=== PATIENT | male | born 1945 | race Caucasian/White ===

== ENCOUNTER 2022-08-25 10:23 | Outpatient (CLI) | payer MEDICARE, BC, SELFPAY ==
[2022-08-25 11:22] LABS: Creatinine* 0.7 mg/dL (0.5-1.5); Estimated Glomerular Filt Rate 95 ml/min
--- NOTE | 2022-08-25 12:00 | CRLHL7_ITS ---
For Patients: As a result of the Century Cures Act, medical imaging exams and procedure reports are released immediately into your electronic medical record. You may view this report before your referring provider. If you have questions, please contact your health care provider. HISTORY: 77-year-old male. Prostate cancer. Initial staging. TECHNIQUE: 27.3 millicuries of [id number] was injected intravenously. Delayed images of the skeleton were obtained in the anterior and posterior projections. Additional lateral views of the pelvis were also obtained. FINDINGS: There is good uptake of activity by the skeleton. Mild uptake in the cervical, thoracic and lumbar spine, shoulders, sternoclavicular joints, hands and wrists, knees, ankles and feet has a pattern and appearance most characteristic of benign arthritic changes. No other significant bony abnormalities are identified. IMPRESSION: 1. There is no convincing evidence of skeletal metastases. 2. There are benign-appearing arthritic changes in multiple locations. Dictated by José Luis Elizalde MD @ 08/25/2022 3:41:54 PM (Electronically Signed)
--- NOTE | 2022-08-25 13:00 | CRLHL7_ITS ---
For Patients: As a result of the Century Cures Act, medical imaging exams and procedure reports are released immediately into your electronic medical record. You may view this report before your referring provider. If you have questions, please contact your health care provider. Indication: PRIMARY MALIGNANT NEOPLASM OF PROSTATE Technique: Postcontrast CT abdomen only per referring provider. 150 cc Isovue 370 intravenous contrast. Please note that all CT scans at this facility use dose modulation, iterative reconstruction, and/or weight-based dosing when appropriate to reduce radiation dose to as low as reasonably achievable. Comparison: None Findings: Calcified granuloma is present within the right lower lobe. Calcified right hilar lymph node also noted. No pleural effusion. Calcified granulomas in the spleen. Punctate calcified granulomas in the liver. No intrahepatic mass. 7 millimeter stone in the gallbladder lumen. Adrenal glands normal. No hiatal hernia. Stomach appears normal. Normal visualized small bowel loops. Large bowel loops also unremarkable. Atherosclerotic disease. No aneurysm. No enlarged retroperitoneal or mesenteric lymph nodes. No solid renal mass or stone. Small parapelvic cysts are present bilaterally. No intrinsic osseous lesion or fracture. Impression: Old granulomatous disease. No abdominal adenopathy. Cholelithiasis. Please note that all CT scans at this facility use dose modulation, iterative reconstruction, and/or weight-based dosing when appropriate to reduce radiation dose to as low as reasonably achievable. Dictated by Elfego Warren MD @ 08/27/2022 3:24:28 PM (Electronically Signed)
--- NOTE | 2022-08-25 13:00 | CRLHL7_ITS ---
For Patients: As a result of the Century Cures Act, medical imaging exams and procedure reports are released immediately into your electronic medical record. You may view this report before your referring provider. If you have questions, please contact your health care provider. Indication: PRIMARY MALIGNANT NEOPLASM OF PROSTATE Technique: Post contrast CT chest. 150 cc Isovue 370 intravenous contrast. Please note that all CT scans at this facility use dose modulation, iterative reconstruction, and/or weight-based dosing when appropriate to reduce radiation dose to as low as reasonably achievable. Comparison: None Findings: 15 millimeter ovoid structure adjacent to the right posterolateral aspect of the trachea, series 2, image 14. No hilar or axillary adenopathy. No destructive osseous lesion or fracture. Degenerative changes. Sequela of granulomatous disease with calcified splenic and hepatic granulomas. Calcified right posterior hilar lymph node and cluster of calcified granulomas within the right lower lobe measuring in total 14 millimeters. No infiltrate or edema. No effusion or pneumothorax. Scarring is present within the right upper lobe medially. Similar scarring at the right lower lobe medially. Impression: Sequela of granulomatous disease. Mildly prominent ovoid solid nodule adjacent to the right posterolateral trachea in the right posterior superior mediastinum. This may represent a mildly prominent lymph node. Attention on follow-up suggested. Please note that all CT scans at this facility use dose modulation, iterative reconstruction, and/or weight-based dosing when appropriate to reduce radiation dose to as low as reasonably achievable. Dictated by Elfego Warren MD @ 08/27/2022 3:20:54 PM (Electronically Signed)
== END 2022-08-25 10:24 | disposition home or self-care (01) ==
PROVIDERS: PCP Family Medicine; Visit Provider Physician Assistant
DX: C61 Malignant neoplasm of prostate (principal)
CPT/HCPCS: 36415; 71260; 74160; 78306; 82565; A9503; Q9967

== ENCOUNTER 2022-10-09 12:40 | Outpatient (CLI) | payer MEDICARE, BC, SELFPAY | END 2022-10-09 12:41 | disposition home or self-care (01) | PROVIDERS: PCP Family Medicine; Referring Provider Family Medicine; Visit Provider Physician Assistant | DX: C61 Malignant neoplasm of prostate (principal) | CPT/HCPCS: 72195 ==

== ENCOUNTER 2022-10-15 14:53 | Outpatient (CLI) | payer MEDICARE, BC, SELFPAY ==
--- NOTE | 2022-10-15 15:30 | CRLHL7_ITS ---
For Patients: As a result of the Cures Act, medical imaging exams and procedure reports are released immediately into your electronic medical record. You may view this report before your referring provider. If you have questions, please contact your health care provider. DXA BONE MINERAL DENSITY STUDY, 10/15/2022 Current height (in): 70.0. Weight (lb): 320.0. Ethnicity: White. 1. Have you had a previous hip or vertebral fracture? No. 2. Have you had any fractures during your adult life which did not result from significant trauma (e.g., auto accident)? No. 3. Did either of your parents have a hip fracture? No. 4. Do you smoke? No. 5. Have you ever taken Glucocorticoids? No. 6. Do you have rheumatoid arthritis? No. 7. Do you have secondary osteoporosis? No. 8. Do you drink 3 or more alcoholic drinks per day? No. 9. Are you being treated for osteoporosis? No. 10. Have you ever taken any of the following medications: Actonel, Evista, Fosamax, Miacalcin, Reclast, Boniva, Forteo, HRT (i.e. estrogen/hormone therapy), Protelos, Prolia, Vitamin D, Calcium, other ??? please specify. ANSWER: Yes, Vitamin D and calcium. 11. Do you have any of the following medical conditions: Anorexia or bulimia, asthma or emphysema, end stage renal disease, hyperparathyroidism, any seizure disorders, cancer, inflammatory bowel diseases, hysterectomy, other ??? please specify. ANSWER: Yes, Cancer. 12. What was your maximum height (inches)? 70. 13. Do you perform weight bearing exercise regularly? No. 14. Do you regularly consume dairy products? No. 15. Do you drink caffeinated beverages? Yes. TECHNIQUE: Bone mineral density study was performed using the [employer]. FINDINGS: The results of the study expressed as bone mineral density (BMD) are as follows: Lumbar spine L1 to L3: BMD: 1.203 g/cm2. T-score: 1.2. Z-score: 2.3. Neck Left: BMD: 0.811 g/cm2. T-score: -0.9 . Z-score: 0.5. Right: BMD: 0.814 g/cm2. T-score: -0.9 . Z-score: 0.5. Total Left: BMD: 0.943 g/cm2. T-score: -0.6 . Z-score: 0.3. Right: BMD: 0.968 g/cm2. T-score: -0.4 . Z-score: 0.5. IMPRESSION: Normal bone density. *Comparison exams done prior to 12/2019 were performed on different unit, [employer]. Elfego Warren M.D. Diagnostic Radiologist [email or web address] DSM/dayan JR/Dictated by: Elfego Warren MD @ 10/16/2022 8:04:00 AM (Electronically Signed)
== END 2022-10-15 14:54 | disposition home or self-care (01) ==
LOC: RAD 14:54
PROVIDERS: PCP Family Medicine; Visit Provider Nurse Practitioner
DX: C61 Malignant neoplasm of prostate (principal)
CPT/HCPCS: 77080

== ENCOUNTER 2023-02-04 09:45 | Outpatient (CLI) | payer MEDICARE, BC, SELFPAY ==
--- NOTE | 2023-02-04 10:00 | CRLHL7_ITS ---
For Patients: As a result of the Century Cures Act, medical imaging exams and procedure reports are released immediately into your electronic medical record. You may view this report before your referring provider. If you have questions, please contact your health care provider. Indication: Follow up nodule Technique: Noncontrast CT chest Please note that all CT scans at this facility use dose modulation, iterative reconstruction, and/or weight-based dosing when appropriate to reduce radiation dose to as low as reasonably achievable. Comparison: 08/25/2022 Findings: The visualized thyroid is within normal limits. Calcified right hilar lymph node noted. Small calcified stone within the gallbladder lumen. Adrenal glands are normal. Calcified splenic granulomas are present. Mild calcifications in the coronary arteries are suspected. Stable nodular density adjacent to the upper trachea on the right. No suspicious osseous lesion. No fracture. Discogenic spurring lower thoracic spine. Clustered partially calcified nodule in the right lower lobe is similar. No additional nodules. No infiltrate or edema. No effusion or pneumothorax. Impression: Stable exam. Chronic granulomatous changes. Unchanged lymph node adjacent to the right side of the trachea considered of doubtful significance. Please note that all CT scans at this facility use dose modulation, iterative reconstruction, and/or weight-based dosing when appropriate to reduce radiation dose to as low as reasonably achievable. Dictated by Elfego Warren MD @ 02/04/2023 12:58:32 PM (Electronically Signed)
== END 2023-02-04 09:46 | disposition home or self-care (01) ==
PROVIDERS: PCP Family Medicine; Visit Provider Physician Assistant
DX: R91.1 Solitary pulmonary nodule (principal)
CPT/HCPCS: 71250

== ENCOUNTER 2023-04-05 13:20 | Outpatient (CLI) | payer MEDICARE, BC, SELFPAY ==
--- NOTE | 2023-04-05 14:00 | CRLHL7_ITS ---
For Patients: As a result of the Century Cures Act, medical imaging exams and procedure reports are released immediately into your electronic medical record. You may view this report before your referring provider. If you have questions, please contact your health care provider. Indication: SOLITARY PULMONARY NODULE Technique: Noncontrast CT chest Please note that all CT scans at this facility use dose modulation, iterative reconstruction, and/or weight-based dosing when appropriate to reduce radiation dose to as low as reasonably achievable. Comparison: 02/04/2023 Findings: 8 millimeter calcified gallstone in the gallbladder lumen again noted. Calcified splenic granulomas. No splenomegaly. Adrenal glands normal. No hiatal hernia. Visualized thyroid normal. Mild calcifications of the coronary arteries. Coarsely calcified nodule within the right lower lobe is similar measuring 1.4 cm stable calcified right posterior hilar lymph node. No enlarged mediastinal, hilar or axillary lymph nodes. Mild linear scarring within the posterior lateral left lower lobe at the inferior aspect. Mild scarring within the medial aspect of the right lower lobe. No pleural effusion or infiltrate. No edema or pneumothorax. No fracture. Discogenic spurring throughout the thoracic spine. Mild emphysematous changes. Impression: Stable benign hamartoma within the right lower lobe. No suspicious pulmonary nodule. No adenopathy. Chronic cholelithiasis. Please note that all CT scans at this facility use dose modulation, iterative reconstruction, and/or weight-based dosing when appropriate to reduce radiation dose to as low as reasonably achievable. Dictated by Elfego Warren MD @ 04/06/2023 9:05:30 AM (Electronically Signed)
== END 2023-04-05 13:21 | disposition home or self-care (01) ==
LOC: CT 13:22
PROVIDERS: PCP Family Medicine; Visit Provider Physician Assistant
DX: R91.1 Solitary pulmonary nodule (principal); K80.20 Calculus of gallbladder without cholecystitis without obstruction
CPT/HCPCS: 71250

== ENCOUNTER 2023-04-19 14:00 | Outpatient (RCR) | payer MEDICARE, BC, SELFPAY ==
--- NOTE | 2022-10-14 10:31 | URNOTE ---
Received request for prior auth for Loni ([id number]) Prior authorization is not required as services are based on medical necessity and follow medicare guidelines.
--- NOTE | 2022-10-14 17:17 | A.ONCPRONO_ITS ---
[facility] Provider Note Clinic Note Narrative: Treatment plan: Eligard 22.5mg SubQ q 3 months Mr. Gus Santos follows at [facility] with Dr. Marco Munson and Alicia Berg APRN, CNP for medical management of Stage ANGEL adenocarcinoma of the prostate. Our clinic received paper orders for first injection of eligard for Mr Santos to be given on 10/19/22. I have entered a treatment plan order on behalf of Alicia Berg APRN, CNP for Mr. Santos.
[2022-10-21 14:32] VITALS: BP 178/81; PULSE 81; RESP 16; TEMP 36; O2SAT 99
[2022-10-21] MEDS: LEUPROLIDE ACETATE 22.5 MG (SQ) SYRINGE SUBCUT (14:58)
--- NOTE | 2022-11-09 14:31 | ONC.NURNOTE ---
New RX Abiraterone faxed to [facility] at [facility] P [phone] P [phone] F [phone] 1000 daily on an empty stomach disp #120 no refills
--- NOTE | 2022-11-09 16:41 | ONC.NURNOTE ---
Addendum entered by Mahogany Alas RN 11/12/22 13:40: abiraterone ready to be ordered through [facility]- patient informed appt reviewed and plan for new drug instruction next week 11/[address] Lowe in follow up Addendum entered by Mahogany Alas RN 11/11/22 12:58: [facility] cost for Zytiga is $833/month RX canceled at and will be faxed to [facility] Instructions given over the phone and emailed to Derrell to register with [facility] at [email or web address] Original Note: Patient updated about abiraterone RX and [facility] he has started his BID prednisone yesterday and was instructed to stop- this will start when starts abiraterone reviewed possible monthly cost of abiraterone around $160 Derrell has appt on 11/17/22 plan to do baseline lab that day and abiraterone teaching after he sees Dr Lowe
[2022-11-17 09:55] LABS: Basophils Absolute Auto 0.02 K/uL (0.00-0.30); Basophils Percent Auto 0.4 % (0.0-3.0); Eosinophils Absolute Auto 0.28 K/uL (0.00-0.50); Eosinophils Percent Auto 5.7 % (0.0-7.0); Hemoglobin* 13.8 gm/dL (13.5-17.5); Immature Granulocytes Abs Auto 0.04 K/uL (0.00-0.30); Immature Granulocytes Pct Auto 0.8 %; Lymphocytes Percent Auto 7.5 % (20-44); Mean Corpuscular HGB Conc 35 gm/dL (32-36); Mean Corpuscular Hemoglobin 29 pg (26-34); Mean Corpuscular Volume 85 fL (80-100); Monocytes Percent Auto 11.2 % (0.0-11.0); Neutrophils Percent Auto 74.4 % (42.0-72.0); Platelet Count* 138 K/uL (140-440); Red Blood Count 4.72 m/uL (4.30-5.90); White Blood Count* 4.92 K/uL (4.50-11.00)
[2022-11-17 09:58] LABS: Slide Review Reflex No
[2022-11-17 10:16] LABS: Chloride* 105 mmol/L (96-114); Sodium* 138 mmol/L (135-149)
[2022-11-17 10:17] LABS: Potassium* 4.4 mmol/L (3.6-5.1)
[2022-11-17 10:19] LABS: Alkaline Phosphatase* 57 U/L (40-150); Aspartate Amino Transferase* 23 U/L (12-35); Bilirubin Total* 0.6 mg/dL (0.1-1.5); Blood Urea Nitrogen* 11 mg/dL (7-30); Carbon Dioxide* 27 mmol/L (20-32); Creatinine* 0.7 mg/dL (0.5-1.5); Est. Creatinine Clearance* 62.84; Estimated Glomerular Filt Rate 95 ml/min; Total Protein* 6.8 g/dL (6.0-8.3)
[2022-11-17 10:20] LABS: Alanine Aminotransferase* 25 U/L (4-50); Calcium* 8.8 mg/dL (8.4-10.6); Glucose* 153 mg/dL (60-115)
[2022-11-17 10:54] LABS: PSA Diagnostic* 0.29 ng/mL (0.10-4.00)
--- NOTE | 2022-11-20 10:26 | ONC.NURNOTE ---
monitoring blood sugar levels Coordination of care Dr Lowe's note sent to Dr Stanley- PCP informed of pending start of prednisone next week patient takes metformin and was instructed to check his blood sugar levels at home for the first few weeks after starting prednisone
--- NOTE | 2022-11-23 11:17 | ONC.NURNOTE ---
New start Abiraterone: started yesterday confirms dosage- 4 pills on an empty stomach prednisone with food reports no side effects or concerns taking abiraterone in am before breakfast
--- NOTE | 2022-12-03 15:21 | ONC.NURNOTE ---
New start abiraterone follow up reports taking once daily X 4 tabs 1 hr before breakfast with prednisone an hour later patient has not checked his blood sugar levels, states he hasnt needed to check glucose several years he thinks that Dr Stanley recently checked his glucose but patient unsure what the value was Gus was instructed to check his blood sugar at home, and he states he will try to do that
[2022-12-17 14:58] LABS: Basophils Absolute Auto 0.03 K/uL (0.00-0.30); Basophils Percent Auto 0.4 % (0.0-3.0); Eosinophils Absolute Auto 0.05 K/uL (0.00-0.50); Eosinophils Percent Auto 0.7 % (0.0-7.0); Hematocrit 39.2 % (37.0-53.0); Hemoglobin* 13.3 gm/dL (13.5-17.5); Immature Granulocytes Abs Auto 0.07 K/uL (0.00-0.30); Immature Granulocytes Pct Auto 0.9 %; Lymphocytes Percent Auto 17.3 % (20-44); Mean Corpuscular HGB Conc 34 gm/dL (32-36); Mean Corpuscular Hemoglobin 30 pg (26-34); Mean Corpuscular Volume 87 fL (80-100); Monocytes Percent Auto 8.2 % (0.0-11.0); Neutrophils Percent Auto 72.5 % (42.0-72.0); Platelet Count* 152 K/uL (140-440); RDW Coefficient of Variation % 13.9 % (11.5-15.5); Red Blood Count 4.51 m/uL (4.30-5.90); White Blood Count* 7.42 K/uL (4.50-11.00)
[2022-12-17 15:16] LABS: Slide Review Reflex No
[2022-12-17 15:21] LABS: Albumin* 4.2 g/dL (3.3-5.0); Chloride* 102 mmol/L (96-114)
[2022-12-17 15:22] LABS: Potassium* 4.1 mmol/L (3.6-5.1); Sodium* 136 mmol/L (135-149)
[2022-12-17 15:24] LABS: Alkaline Phosphatase* 64 U/L (40-150); Aspartate Amino Transferase* 19 U/L (12-35); Bilirubin Total* 0.4 mg/dL (0.1-1.5); Blood Urea Nitrogen* 23 mg/dL (7-30); Carbon Dioxide* 29 mmol/L (20-32); Creatinine* 0.9 mg/dL (0.5-1.5); Est. Creatinine Clearance* 62.84; Estimated Glomerular Filt Rate 89 ml/min
[2022-12-17 15:25] LABS: Alanine Aminotransferase* 23 U/L (4-50); Calcium* 9.1 mg/dL (8.4-10.6); Glucose* 181 mg/dL (60-115)
[2022-12-17 16:25] LABS: Cholesterol* 160 mg/dL (90-199); HDL Cholesterol* 52 mg/dL (>=40); LDL Cholesterol Calculated 74 mg/dL (<100); Triglycerides* 172 mg/dL (40-149)
[2022-12-19 12:47] LABS: Testosterone, Adult Male <3 ng/dL (300-720)
--- NOTE | 2022-12-22 12:41 | ONC.NURNOTE ---
Fruit Grading Supervisor called Derrell and informed him that the refills for abiraterone and prednisone have been submitted to his pharmacies Derrell expressed considerable frustration with the inconvenience of not having refills available when he went to reorder conventional underwriter explained that Jenna Kinsey did not sent a refill request to our office, in order to avoid another lapse in treatment, it would be most helpful if Derrell calls our office when he receives notification that there are not refills available Derrell has reduced the dose of abiraterone past 5 days from 4 tabs/day to 3 tabs/day in order to stretch out the RX while waiting for refills- he took his last dose this am his daughter will order the refills today
[2023-01-11 10:11] LABS: Basophils Absolute Auto 0.03 K/uL (0.00-0.30); Basophils Percent Auto 0.3 % (0.0-3.0); Eosinophils Absolute Auto 0.09 K/uL (0.00-0.50); Hematocrit 37.1 % (37.0-53.0); Hemoglobin* 12.5 gm/dL (13.5-17.5); Immature Granulocytes Abs Auto 0.31 K/uL (0.00-0.30); Immature Granulocytes Pct Auto 3.6 %; Lymphocytes Percent Auto 11.9 % (20-44); Mean Corpuscular HGB Conc 34 gm/dL (32-36); Mean Corpuscular Hemoglobin 29 pg (26-34); Mean Corpuscular Volume 87 fL (80-100); Monocytes Percent Auto 6.2 % (0.0-11.0); Platelet Count* 246 K/uL (140-440); RDW Coefficient of Variation % 13.3 % (11.5-15.5); Red Blood Count 4.29 m/uL (4.30-5.90); White Blood Count* 8.68 K/uL (4.50-11.00)
[2023-01-11 10:12] LABS: Slide Review Reflex No
[2023-01-11 10:31] LABS: Albumin* 3.9 g/dL (3.3-5.0); Chloride* 103 mmol/L (96-114); Potassium* 3.9 mmol/L (3.6-5.1); Sodium* 133 mmol/L (135-149)
[2023-01-11 10:34] LABS: Alanine Aminotransferase* 22 U/L (4-50); Alkaline Phosphatase* 59 U/L (40-150); Aspartate Amino Transferase* 23 U/L (12-35); Bilirubin Total* 0.3 mg/dL (0.1-1.5); Blood Urea Nitrogen* 18 mg/dL (7-30); Carbon Dioxide* 26 mmol/L (20-32); Creatinine* 0.7 mg/dL (0.5-1.5); Est. Creatinine Clearance* 62.84; Estimated Glomerular Filt Rate 95 ml/min; Glucose* 183 mg/dL (60-115)
[2023-01-11 10:35] LABS: Calcium* 8.9 mg/dL (8.4-10.6)
--- NOTE | 2023-01-11 11:55 | ONC.NURNOTE ---
Derrell was here for lab and abiraterone follow up Derrell has not ordered his next dose of abiraterone from the [facility] this technical writer and editor walked him through the process and refill was ordered to be delivered next week Labs reviewed- discussed Na and Glucose- Blood sugar is being monitored by Dr Stanley reviewed how is is taking the abiraterone at home and prednisone new appts made for follow in 4 weeks with labs Derrell has been off his abiraterone since end of November- multiple conversations with patient has occured since late november with instructions- that he will need to log in to [facility] to order his next RX initially kory in law set up the account and ordered the first month for patient Derrell has this writers contact, he can call and come in each month and technical writer and editor will assist in ordering the medication via the elizabet on his cell phone next follow up in 4 weeks and this office can help him order his abiraterone at that time reports no concerns with taking abiraterone, states he was tolerating well
[2023-01-19 14:12] VITALS: BP 133/82; PULSE 87; RESP 16; TEMP 36.3; O2SAT 96
[2023-01-19] MEDS: LEUPROLIDE ACETATE 22.5 MG (SQ) SYRINGE SUBCUT (14:21)
--- NOTE | 2023-01-20 14:26 | ONC.NURNOTE ---
Yesterday patient reported that he received his abiraterone and restarted after a 1 month break Derrell had needed assist of this office to order his refills
[2023-02-09 13:54] LABS: Basophils Absolute Auto 0.04 K/uL (0.00-0.30); Basophils Percent Auto 0.5 % (0.0-3.0); Eosinophils Absolute Auto 0.07 K/uL (0.00-0.50); Eosinophils Percent Auto 0.9 % (0.0-7.0); Hematocrit 37.1 % (37.0-53.0); Hemoglobin* 12.5 gm/dL (13.5-17.5); Immature Granulocytes Abs Auto 0.06 K/uL (0.00-0.30); Immature Granulocytes Pct Auto 0.8 %; Lymphocytes Percent Auto 10.6 % (20-44); Mean Corpuscular HGB Conc 34 gm/dL (32-36); Mean Corpuscular Hemoglobin 30 pg (26-34); Mean Corpuscular Volume 90 fL (80-100); Monocytes Percent Auto 7.7 % (0.0-11.0); Neutrophils Percent Auto 79.5 % (42.0-72.0); Platelet Count* 174 K/uL (140-440); RDW Coefficient of Variation % 13.5 % (11.5-15.5); Red Blood Count 4.12 m/uL (4.30-5.90); White Blood Count* 7.54 K/uL (4.50-11.00)
[2023-02-09 13:56] LABS: Slide Review Reflex No
[2023-02-09 14:09] LABS: Albumin* 3.9 g/dL (3.3-5.0)
[2023-02-09 14:10] LABS: Chloride* 102 mmol/L (96-114); Potassium* 3.8 mmol/L (3.6-5.1); Sodium* 135 mmol/L (135-149)
[2023-02-09 14:12] LABS: Bilirubin Total* 0.4 mg/dL (0.1-1.5); Carbon Dioxide* 27 mmol/L (20-32); Creatinine* 0.8 mg/dL (0.5-1.5); Est. Creatinine Clearance* 61.86; Estimated Glomerular Filt Rate 91 ml/min
[2023-02-09 14:13] LABS: Alanine Aminotransferase* 19 U/L (4-50); Alkaline Phosphatase* 66 U/L (40-150); Aspartate Amino Transferase* 18 U/L (12-35); Blood Urea Nitrogen* 22 mg/dL (7-30); Calcium* 8.6 mg/dL (8.4-10.6); Glucose* 220 mg/dL (60-115); Total Protein* 6.7 g/dL (6.0-8.3)
[2023-02-09 14:56] LABS: PSA Diagnostic* < 0.06 ng/mL (0.10-4.00)
--- NOTE | 2023-03-15 14:07 | ONC.NURNOTE ---
Addendum entered by Mahogany Alas RN 03/15/23 16:04: Lab results called to Derrell as stable Original Note: Derrell is here for monthly lab work, reports no concerns with his abiraterone dose confirmed expert medical writer assisted Derrell in ordering his next dose from [facility]
[2023-03-15 14:18] LABS: Basophils Absolute Auto 0.04 K/uL (0.00-0.30); Basophils Percent Auto 0.6 % (0.0-3.0); Eosinophils Percent Auto 1.4 % (0.0-7.0); Hematocrit 37.3 % (37.0-53.0); Hemoglobin* 12.6 gm/dL (13.5-17.5); Immature Granulocytes Abs Auto 0.06 K/uL (0.00-0.30); Immature Granulocytes Pct Auto 0.8 %; Lymphocytes Percent Auto 9.6 % (20-44); Mean Corpuscular HGB Conc 34 gm/dL (32-36); Mean Corpuscular Hemoglobin 30 pg (26-34); Mean Corpuscular Volume 89 fL (80-100); Monocytes Percent Auto 7.5 % (0.0-11.0); Neutrophils Percent Auto 80.1 % (42.0-72.0); Platelet Count* 180 K/uL (140-440); RDW Coefficient of Variation % 12.7 % (11.5-15.5); Red Blood Count 4.18 m/uL (4.30-5.90); White Blood Count* 7.07 K/uL (4.50-11.00)
[2023-03-15 14:42] LABS: Chloride* 101 mmol/L (96-114)
[2023-03-15 14:43] LABS: Albumin* 3.9 g/dL (3.3-5.0); Sodium* 136 mmol/L (135-149)
[2023-03-15 14:45] LABS: Anion Gap 8 mEq/L (7-15); Bilirubin Total* 0.4 mg/dL (0.1-1.5); Carbon Dioxide* 27 mmol/L (20-32); Creatinine* 0.7 mg/dL (0.5-1.5); Est. Creatinine Clearance* 61.86; Estimated Glomerular Filt Rate 95 ml/min
[2023-03-15 14:46] LABS: Alanine Aminotransferase* 20 U/L (4-50); Alkaline Phosphatase* 75 U/L (40-150); Aspartate Amino Transferase* 20 U/L (12-35); Blood Urea Nitrogen* 20 mg/dL (7-30); Glucose* 182 mg/dL (60-115); Total Protein* 6.8 g/dL (6.0-8.3)
[2023-03-15 15:03] LABS: Slide Review Reflex No
[2023-03-18 20:01] LABS: Calcium* 9.2 mg/dL (8.4-10.6)
[2023-04-12 14:17] LABS: Basophils Absolute Auto 0.03 K/uL (0.00-0.30); Basophils Percent Auto 0.4 % (0.0-3.0); Eosinophils Absolute Auto 0.05 K/uL (0.00-0.50); Eosinophils Percent Auto 0.7 % (0.0-7.0); Hematocrit 39.1 % (37.0-53.0); Hemoglobin* 12.9 gm/dL (13.5-17.5); Immature Granulocytes Abs Auto 0.08 K/uL (0.00-0.30); Immature Granulocytes Pct Auto 1.1 %; Lymphocytes Percent Auto 11.1 % (20-44); Mean Corpuscular HGB Conc 33 gm/dL (32-36); Mean Corpuscular Hemoglobin 29 pg (26-34); Mean Corpuscular Volume 89 fL (80-100); Monocytes Percent Auto 6.3 % (0.0-11.0); Neutrophils Percent Auto 80.4 % (42.0-72.0); Platelet Count* 169 K/uL (140-440); Red Blood Count 4.39 m/uL (4.30-5.90); White Blood Count* 7.14 K/uL (4.50-11.00)
[2023-04-12 14:21] LABS: Slide Review Reflex No
[2023-04-12 14:39] LABS: Chloride* 101 mmol/L (96-114); Sodium* 135 mmol/L (135-149)
[2023-04-12 14:40] LABS: Potassium* 4.1 mmol/L (3.6-5.1)
[2023-04-12 14:42] LABS: Alanine Aminotransferase* 22 U/L (4-50); Alkaline Phosphatase* 64 U/L (40-150); Anion Gap 7 mEq/L (7-15); Aspartate Amino Transferase* 21 U/L (12-35); Bilirubin Total* 0.5 mg/dL (0.1-1.5); Blood Urea Nitrogen* 18 mg/dL (7-30); Carbon Dioxide* 27 mmol/L (20-32); Creatinine* 0.7 mg/dL (0.5-1.5); Est. Creatinine Clearance* 61.86; Estimated Glomerular Filt Rate 95 ml/min; Total Protein* 7.1 g/dL (6.0-8.3)
[2023-04-12 14:43] LABS: Calcium* 9.4 mg/dL (8.4-10.6); Glucose* 217 mg/dL (60-115)
[2023-04-19 13:50] VITALS: BP 144/81; PULSE 68; RESP 16; TEMP 36.4; O2SAT 97
[2023-04-19] MEDS: LEUPROLIDE ACETATE 22.5 MG (SQ) SYRINGE SUBCUT (14:23)
== END 2023-04-19 23:59 | disposition home or self-care (01) ==
LOC: CCIC 14:00
PROVIDERS: Internal Medicine Medical Oncology; Physician Assistant; PCP Family Medicine; Referring Provider Family Medicine; Visit Provider Internal Medicine Hematology & Oncology
DX: C61 Malignant neoplasm of prostate (principal)
CPT/HCPCS: 36415; 80053; 80061; 84153; 84403; 85025; 96372; 96401; 99202; 99205; 99212; 99214; 99215; J9217

== ENCOUNTER 2023-10-20 15:00 | Outpatient (RCR) | payer MEDICARE, BC, SELFPAY ==
[2023-05-11 14:17] LABS: Basophils Absolute Auto 0.02 K/uL (0.00-0.30); Basophils Percent Auto 0.2 % (0.0-3.0); Eosinophils Absolute Auto 0.04 K/uL (0.00-0.50); Eosinophils Percent Auto 0.5 % (0.0-7.0); Hematocrit 41.8 % (37.0-53.0); Hemoglobin* 13.7 gm/dL (13.5-17.5); Immature Granulocytes Abs Auto 0.04 K/uL (0.00-0.30); Immature Granulocytes Pct Auto 0.5 %; Lymphocytes Percent Auto 9.1 % (20-44); Mean Corpuscular HGB Conc 33 gm/dL (32-36); Mean Corpuscular Hemoglobin 30 pg (26-34); Mean Corpuscular Volume 90 fL (80-100); Monocytes Percent Auto 7.5 % (0.0-11.0); Neutrophils Percent Auto 82.2 % (42.0-72.0); Platelet Count* 189 K/uL (140-440); RDW Coefficient of Variation % 12.9 % (11.5-15.5); Red Blood Count 4.65 m/uL (4.30-5.90); White Blood Count* 8.75 K/uL (4.50-11.00)
[2023-05-11 14:24] LABS: Slide Review Reflex No
[2023-05-11 14:53] LABS: Albumin* 4.2 g/dL (3.3-5.0); Chloride* 102 mmol/L (96-114); Potassium* 4.4 mmol/L (3.6-5.1); Sodium* 141 mmol/L (135-149)
[2023-05-11 14:55] LABS: Bilirubin Total* 0.5 mg/dL (0.1-1.5); Creatinine* 0.9 mg/dL (0.5-1.5); Estimated Glomerular Filt Rate 88 ml/min
[2023-05-11 14:56] LABS: Alanine Aminotransferase* 20 U/L (4-50); Alkaline Phosphatase* 72 U/L (40-150); Anion Gap 10 mEq/L (7-15); Aspartate Amino Transferase* 28 U/L (12-35); Blood Urea Nitrogen* 18 mg/dL (7-30); Calcium* 9.3 mg/dL (8.4-10.6); Carbon Dioxide* 29 mmol/L (20-32); Glucose* 146 mg/dL (60-115); Total Protein* 7.4 g/dL (6.0-8.3)
[2023-05-11 15:31] LABS: PSA Diagnostic* < 0.06 ng/mL (0.10-4.00)
--- NOTE | 2023-05-13 12:33 | ONC.NURNOTE ---
Call to Derrell next lab could be every 3 months, in order to align lab, alicia and provider visit- Derrell will keep his next appt with Lotus and get labs too (07/21/23) then moving forward he will get lab every 3 month with provider appts and alicia
[2023-07-22 13:40] LABS: Basophils Absolute Auto 0.02 K/uL (0.00-0.30); Basophils Percent Auto 0.2 % (0.0-3.0); Eosinophils Absolute Auto 0.07 K/uL (0.00-0.50); Eosinophils Percent Auto 0.9 % (0.0-7.0); Hematocrit 39.1 % (37.0-53.0); Hemoglobin* 12.8 gm/dL (13.5-17.5); Immature Granulocytes Abs Auto 0.08 K/uL (0.00-0.30); Lymphocytes Percent Auto 9.1 % (20-44); Mean Corpuscular HGB Conc 33 gm/dL (32-36); Mean Corpuscular Hemoglobin 29 pg (26-34); Mean Corpuscular Volume 90 fL (80-100); Monocytes Percent Auto 6.3 % (0.0-11.0); Neutrophils Percent Auto 82.5 % (42.0-72.0); Platelet Count* 192 K/uL (140-440); RDW Coefficient of Variation % 13.3 % (11.5-15.5); Red Blood Count 4.35 m/uL (4.30-5.90); White Blood Count* 8.11 K/uL (4.50-11.00)
[2023-07-22 13:47] LABS: Slide Review Reflex No
[2023-07-22 13:50] LABS: Albumin* 4.2 g/dL (3.3-5.0); Chloride* 100 mmol/L (96-114); Potassium* 4.3 mmol/L (3.6-5.1); Sodium* 135 mmol/L (135-149)
[2023-07-22 13:52] LABS: Creatinine* 0.7 mg/dL (0.5-1.5); Estimated Glomerular Filt Rate 95 ml/min
[2023-07-22 13:53] LABS: Alanine Aminotransferase* 21 U/L (4-50); Alkaline Phosphatase* 75 U/L (40-150); Anion Gap 9 mEq/L (7-15); Aspartate Amino Transferase* 23 U/L (12-35); Bilirubin Total* 0.4 mg/dL (0.1-1.5); Blood Urea Nitrogen* 23 mg/dL (7-30); Carbon Dioxide* 26 mmol/L (20-32); Glucose* 197 mg/dL (60-115); Total Protein* 7.2 g/dL (6.0-8.3)
[2023-07-22 14:29] LABS: PSA Diagnostic* < 0.06 ng/mL (0.10-4.00)
[2023-07-22] MEDS: LEUPROLIDE ACETATE 22.5 MG (SQ) SYRINGE SUBCUT (15:30)
[2023-08-11 14:03] LABS: Basophils Absolute Auto 0.03 K/uL (0.00-0.30); Basophils Percent Auto 0.4 % (0.0-3.0); Eosinophils Absolute Auto 0.09 K/uL (0.00-0.50); Eosinophils Percent Auto 1.2 % (0.0-7.0); Hematocrit 38.9 % (37.0-53.0); Hemoglobin* 12.7 gm/dL (13.5-17.5); Immature Granulocytes Abs Auto 0.05 K/uL (0.00-0.30); Immature Granulocytes Pct Auto 0.7 %; Lymphocytes Percent Auto 9.4 % (20-44); Mean Corpuscular HGB Conc 33 gm/dL (32-36); Mean Corpuscular Hemoglobin 29 pg (26-34); Mean Corpuscular Volume 89 fL (80-100); Monocytes Percent Auto 6.5 % (0.0-11.0); Neutrophils Percent Auto 81.8 % (42.0-72.0); Platelet Count* 180 K/uL (140-440); RDW Coefficient of Variation % 12.9 % (11.5-15.5); Red Blood Count 4.36 m/uL (4.30-5.90); White Blood Count* 7.69 K/uL (4.50-11.00)
[2023-08-11 14:11] LABS: Slide Review Reflex No
[2023-08-11 14:12] LABS: Albumin* 4.1 g/dL (3.3-5.0); Chloride* 104 mmol/L (96-114)
[2023-08-11 14:13] LABS: Sodium* 139 mmol/L (135-149)
[2023-08-11 14:15] LABS: Anion Gap 7 mEq/L (7-15); Aspartate Amino Transferase* 19 U/L (12-35); Bilirubin Total* 0.4 mg/dL (0.1-1.5); Carbon Dioxide* 28 mmol/L (20-32); Creatinine* 0.8 mg/dL (0.5-1.5); Estimated Glomerular Filt Rate 91 ml/min
[2023-08-11 14:16] LABS: Alanine Aminotransferase* 19 U/L (4-50); Alkaline Phosphatase* 72 U/L (40-150); Blood Urea Nitrogen* 18 mg/dL (7-30); Glucose* 200 mg/dL (60-115)
--- NOTE | 2023-08-11 15:03 | ONC.NURNOTE ---
Patient in office today for labs in relation to oral chemotherapy. He notes that Mahogany orders his medication and hands nursing his phone. Security System Administrator walked patient through ordering medication, confirmation given at end of prompts. Patient instructed to call office if anything changes from his normal in relation to shipping.
[2023-09-08 13:27] LABS: Basophils Absolute Auto 0.01 K/uL (0.00-0.30); Basophils Percent Auto 0.1 % (0.0-3.0); Eosinophils Absolute Auto 0.04 K/uL (0.00-0.50); Eosinophils Percent Auto 0.5 % (0.0-7.0); Hematocrit 39.1 % (37.0-53.0); Hemoglobin* 12.9 gm/dL (13.5-17.5); Immature Granulocytes Abs Auto 0.05 K/uL (0.00-0.30); Immature Granulocytes Pct Auto 0.7 %; Lymphocytes Percent Auto 10.8 % (20-44); Mean Corpuscular HGB Conc 33 gm/dL (32-36); Mean Corpuscular Hemoglobin 29 pg (26-34); Mean Corpuscular Volume 89 fL (80-100); Monocytes Percent Auto 5.7 % (0.0-11.0); Neutrophils Percent Auto 82.2 % (42.0-72.0); Platelet Count* 174 K/uL (140-440); Red Blood Count 4.42 m/uL (4.30-5.90); White Blood Count* 7.43 K/uL (4.50-11.00)
[2023-09-08 13:30] LABS: Slide Review Reflex No
[2023-09-08 13:54] LABS: Chloride* 101 mmol/L (96-114)
[2023-09-08 13:55] LABS: Albumin* 4.1 g/dL (3.3-5.0); Potassium* 4.2 mmol/L (3.6-5.1); Sodium* 137 mmol/L (135-149)
[2023-09-08 13:57] LABS: Creatinine* 0.8 mg/dL (0.5-1.5); Estimated Glomerular Filt Rate 91 ml/min
[2023-09-08 13:58] LABS: Alanine Aminotransferase* 17 U/L (4-50); Alkaline Phosphatase* 75 U/L (40-150); Anion Gap 7 mEq/L (7-15); Aspartate Amino Transferase* 18 U/L (12-35); Bilirubin Total* 0.5 mg/dL (0.1-1.5); Blood Urea Nitrogen* 21 mg/dL (7-30); Calcium* 9.4 mg/dL (8.4-10.6); Carbon Dioxide* 29 mmol/L (20-32); Glucose* 258 mg/dL (60-115)
--- NOTE | 2023-09-08 16:11 | ONC.NURNOTE ---
Labs noted and called to patient as stable results to be reviewed by Dr Lowe next appts reviewed reports no concerns with taking his abiraterone
[2023-10-06 13:17] LABS: Basophils Absolute Auto 0.02 K/uL (0.00-0.30); Basophils Percent Auto 0.2 % (0.0-3.0); Eosinophils Absolute Auto 0.03 K/uL (0.00-0.50); Eosinophils Percent Auto 0.4 % (0.0-7.0); Hematocrit 37.9 % (37.0-53.0); Hemoglobin* 12.7 gm/dL (13.5-17.5); Immature Granulocytes Abs Auto 0.04 K/uL (0.00-0.30); Immature Granulocytes Pct Auto 0.5 %; Lymphocytes Percent Auto 9.9 % (20-44); Mean Corpuscular HGB Conc 34 gm/dL (32-36); Mean Corpuscular Hemoglobin 29 pg (26-34); Mean Corpuscular Volume 88 fL (80-100); Monocytes Percent Auto 5.1 % (0.0-11.0); Neutrophils Percent Auto 83.9 % (42.0-72.0); Platelet Count* 175 K/uL (140-440); RDW Coefficient of Variation % 12.9 % (11.5-15.5); Red Blood Count 4.32 m/uL (4.30-5.90); White Blood Count* 8.46 K/uL (4.50-11.00)
[2023-10-06 13:29] LABS: Chloride* 103 mmol/L (96-114); Sodium* 138 mmol/L (135-149)
[2023-10-06 13:30] LABS: Potassium* 3.7 mmol/L (3.6-5.1); Slide Review Reflex No
[2023-10-06 13:32] LABS: Alanine Aminotransferase* 17 U/L (4-50); Alkaline Phosphatase* 77 U/L (40-150); Anion Gap 6 mEq/L (7-15); Aspartate Amino Transferase* 18 U/L (12-35); Bilirubin Total* 0.4 mg/dL (0.1-1.5); Blood Urea Nitrogen* 17 mg/dL (7-30); Carbon Dioxide* 29 mmol/L (20-32); Creatinine* 0.6 mg/dL (0.5-1.5); Estimated Glomerular Filt Rate 99 ml/min; Glucose* 214 mg/dL (60-115); Total Protein* 6.8 g/dL (6.0-8.3)
[2023-10-06 13:33] LABS: Calcium* 9.4 mg/dL (8.4-10.6)
[2023-10-06 14:07] LABS: PSA Diagnostic* < 0.06 ng/mL (0.10-4.00)
--- NOTE | 2023-10-06 15:07 | ONC.NURNOTE ---
Labs reviewed by bond writer and called to patient as stable- has provider appt in 2 weeks reports toleration of abiraterone with no concerns
[2023-10-20] MEDS: LEUPROLIDE ACETATE 22.5 MG (SQ) SYRINGE SUBCUT (14:54)
== END 2023-11-07 23:59 | disposition home or self-care (01) ==
LOC: CCIC 15:00
PROVIDERS: Physician Assistant; PCP Family Medicine; Referring Provider Family Medicine; Visit Provider Internal Medicine Hematology & Oncology
DX: C61 Malignant neoplasm of prostate (principal); E11.59 Type 2 diabetes mellitus with other circulatory complications; I15.2 Hypertension secondary to endocrine disorders; E11.69 Type 2 diabetes mellitus with other specified complication; E78.5 Hyperlipidemia, unspecified; R91.8 Other nonspecific abnormal finding of lung field; Z86.711 Personal history of pulmonary embolism; Z79.82 Long term (current) use of aspirin; E66.9 Obesity, unspecified
CPT/HCPCS: 36415; 80053; 84153; 85025; 96401; 99212; 99214; 99215; G0463; J9217

== ENCOUNTER 2024-07-17 12:00 | Outpatient (RCR) | payer MEDICARE, BC, SELFPAY ==
--- NOTE | 2024-01-21 13:43 | URNOTE ---
Request received for authorization forMal ([id number]). Prior authorization is not required as services are based on medical necessity and follow Medicare guidelines.
[2024-01-24 14:05] LABS: Albumin* 4.2 g/dL (3.3-5.0); Basophils Absolute Auto 0.03 K/uL (0.00-0.30); Basophils Percent Auto 0.4 % (0.0-3.0); Eosinophils Absolute Auto 0.06 K/uL (0.00-0.50); Eosinophils Percent Auto 0.7 % (0.0-7.0); Hematocrit 40.7 % (37.0-53.0); Hemoglobin* 13.1 gm/dL (13.5-17.5); Immature Granulocytes Abs Auto 0.09 K/uL (0.00-0.30); Immature Granulocytes Pct Auto 1.1 %; Lymphocytes Percent Auto 8.5 % (20-44); Mean Corpuscular HGB Conc 32 gm/dL (32-36); Mean Corpuscular Hemoglobin 28 pg (26-34); Mean Corpuscular Volume 88 fL (80-100); Monocytes Percent Auto 6.9 % (0.0-11.0); Neutrophils Percent Auto 82.4 % (42.0-72.0); Platelet Count* 191 K/uL (140-440); RDW Coefficient of Variation % 13.4 % (11.5-15.5); Red Blood Count 4.64 m/uL (4.30-5.90); White Blood Count* 8.37 K/uL (4.50-11.00)
[2024-01-24 14:06] LABS: Chloride* 103 mmol/L (96-114); Potassium* 4.2 mmol/L (3.6-5.1); Sodium* 137 mmol/L (135-149)
[2024-01-24 14:08] LABS: Anion Gap 7 mEq/L (7-15); Aspartate Amino Transferase* 18 U/L (12-35); Bilirubin Total* 0.5 mg/dL (0.1-1.5); Carbon Dioxide* 27 mmol/L (20-32); Creatinine* 0.9 mg/dL (0.5-1.5); Estimated Glomerular Filt Rate 87 ml/min
[2024-01-24 14:09] LABS: Alanine Aminotransferase* 16 U/L (4-50); Alkaline Phosphatase* 81 U/L (40-150); Blood Urea Nitrogen* 24 mg/dL (7-30); Calcium* 9.1 mg/dL (8.4-10.6); Glucose* 177 mg/dL (60-115); Total Protein* 6.9 g/dL (6.0-8.3)
[2024-01-24 14:19] LABS: Slide Review Reflex No
[2024-01-24 14:44] LABS: PSA Diagnostic* < 0.06 ng/mL (0.10-4.00)
[2024-01-24] MEDS: LEUPROLIDE ACETATE 22.5 MG (SQ) SYRINGE SUBCUT (15:24)
[2024-04-17 13:14] LABS: Basophils Absolute Auto 0.03 K/uL (0.00-0.30); Basophils Percent Auto 0.4 % (0.0-3.0); Eosinophils Absolute Auto 0.03 K/uL (0.00-0.50); Eosinophils Percent Auto 0.4 % (0.0-7.0); Hematocrit 41.8 % (37.0-53.0); Hemoglobin* 13.3 gm/dL (13.5-17.5); Immature Granulocytes Abs Auto 0.07 K/uL (0.00-0.30); Immature Granulocytes Pct Auto 0.9 %; Lymphocytes Percent Auto 9.2 % (20-44); Mean Corpuscular HGB Conc 32 gm/dL (32-36); Mean Corpuscular Hemoglobin 28 pg (26-34); Mean Corpuscular Volume 88 fL (80-100); Monocytes Percent Auto 6.8 % (0.0-11.0); Neutrophils Percent Auto 82.3 % (42.0-72.0); Platelet Count* 186 K/uL (140-440); Red Blood Count 4.75 m/uL (4.30-5.90); White Blood Count* 8.13 K/uL (4.50-11.00)
[2024-04-17 13:17] LABS: Slide Review Reflex No
[2024-04-17 13:29] LABS: Albumin* 4.3 g/dL (3.3-5.0)
[2024-04-17 13:30] LABS: Chloride* 100 mmol/L (96-114); Potassium* 5.1 mmol/L (3.6-5.1); Sodium* 136 mmol/L (135-149)
[2024-04-17 13:32] LABS: Anion Gap 6 mEq/L (7-15); Aspartate Amino Transferase* 19 U/L (12-35); Bilirubin Total* 0.5 mg/dL (0.1-1.5); Carbon Dioxide* 30 mmol/L (20-32); Creatinine* 0.9 mg/dL (0.5-1.5); Estimated Glomerular Filt Rate 87 ml/min
[2024-04-17 13:33] LABS: Alanine Aminotransferase* 16 U/L (4-50); Alkaline Phosphatase* 77 U/L (40-150); Blood Urea Nitrogen* 22 mg/dL (7-30); Calcium* 9.8 mg/dL (8.4-10.6); Glucose* 145 mg/dL (60-115)
[2024-04-17 14:02] LABS: PSA Diagnostic* < 0.06 ng/mL (0.10-4.00)
[2024-04-17] MEDS: LEUPROLIDE ACETATE 22.5 MG (SQ) SYRINGE SUBCUT (15:12)
--- OUTSIDE RECORDS SUMMARY | 2024-07-17 07:11 | XMS_ITS | Data Portability ---
Author Organization 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 Plan of Treatment Reminders Order Date Submit Date Provider Last Modified By Organization Details Last Modified Time Details Appointments None recorded. Lab urinalysis, dipstick 2021 [facility], [address], [address], [place], [address], 15:02:52 Referral None recorded. Procedures bladder scan (PROC) 2021 [facility], [address], [address], [place], [address], 11:59:21 Surgeries None recorded. Imaging None recorded. Medication Orders levofloxaci n 500 mg tablet 2021 [facility] Not available 11:39:28 ceftriaxone 1 gram solution for injection 2022 023 [email or web address] Not available 3 12:11:01 Patient TargetsNo targets recorded. Patient Instructions Encounter Date Encounter Id Patient Instructions Last Modified By Organization Details Last Modified Time 07/02/2022 [id number] firm nodule left side of prostate. set biopsy of prostate Lynda office [email or web address] Not available 07/02/2022 11:38:19 08/03/2022 [id number] home with instruction sheet, will call with path report when available. [email or web address] Not available 08/03/2022 12:34:46 08/10/2022 [id number] will think about treatment options after discussion of LEAH of all treatment options. interested most in cryoablation so will work on getting that set up once he gives us the OK. [email or web address] Not available 08/10/2022 17:48:50 Reason for Referral None Reported. Results Created Date Observation Date Name Description Value Unit Range Abnormal Flag Note LastModifiedBy Organization Detail LastModifiedTime 07/02/20 22 07/02/2022 bladd er scan (PROC ) Volume (in mL) 28 Not Available [address] [facility], [place], [address], 07/02/2022 11:35:48 07/13/20 22 07/13/2022 urina lysis , dipst ick pH-Status 6.0 Not Available [facility] [address], [place], [address], 07/02/2022 11:22:28 07/02/20 22 07/02/2022 bladd er scan (PROC ) No observ ation record ed. BARCODE Not Available 2021 18:06:36 Result Notes None recorded. Procedures Surgical History Date Name Laterality Status Provider Name and Address Organization Details Recorded Time 3 Prostate Biopsy Procedure completed Gurpreet Hernandez MD [address] [place] [address], [phone], [facility] 08/03/2022 12:34:19 2 Bladder Scan completed Gurpreet Hernandez MD [address] [place] [address],[address], [address], [facility] 07/02/2022 11:28:16 Imaging Results Imaging Date Name Status LastModified by Organiz ation Details LastModified Time 07/02/2022 bladder scan (PROC) completed [facility] Information not available 07/02/2022 18:06:36 Procedure Notes None recorded. Medical Equipment None Reported. Allergies No known drug allergies Medications Name Sig Start Date Stop Date Status Note LastModified by Organization Details LastModified Time losartan 50 mg tablet TAKE 1 TABLET BY MOUTH EVERY DAY active Not Available Not Available No t Available metformin 500 mg tablet TAKE 1 TABLET BY MOUTH EVERY DAY active Not Available Not Available No t Available hydrocodone 5 mg-acetamin ophen 325 mg tablet TAKE 1-2 TABLETS BY MOUTH EVERY 6 HRS NEEDED FOR PAIN 07/02 completed Not Available Not Available Not Available ceftriaxone 1 gram solution for injection Take 1 g by injection route. 2022 active Not Available Not Available Not Avai lable metformin 1,000 mg tablet TAKE 1 TABLET BY MOUTH TWICE A DAY WITH MEALS 07/02 completed Not Available Not Available Not Available pravastatin 20 mg tablet TAKE 1 TABLET BY MOUTH EVERYDAY AT BEDTIME active Not Available Not Available No t Available levofloxaci n 500 mg tablet Take 1 tablet every 24 hours by oral route for 3 days. 2021 active Not Available Not Available Not Avai lable amoxicillin 500 mg-potassiu m clavulanate 125 mg tablet TAKE 1 TABLET BY MOUTH EVERY 8 HRS UNTIL GONE 07/02 completed Not Available Not Available Not Available cholecalcif butch (vitamin D3) 125 mcg (5,000 unit) tablet TAKE 1 TABLET BY MOUTH EVERY DAY active Not Available Not Available No t Available Vitals Date Recorded Body height Body mass index (BMI) Body weight Provider Name and Address Organization Details Last Updated DateTime 07/02/2022 180.34 cm 41.8 kg/m2 614909.71 g Gurpreet Hernandez MD [address] [place] [address], [phone], [facility] 07/02/2022 11:22:22 Date Recorded Body height Body mass index (BMI) Body weight Provider Name and Address Organization Details Last Updated DateTime 08/03/2022 180.34 cm 41.8 kg/m2 594407.71 g Kimo Huff [facility] 08/03/2022 12:09:13 Date Recorded Body height Provider Name an d Address Organization Details Last Updated DateTime 08/10/2022 180.34 cm Gurpreet Hernandez MD [address] [place] [address], [phone], [facility] 08/10/2022 17:03:39 Social History Question Answer Notes LastModified by Organizat ion Details LastModified Time Tobacco Smoking Status Former Smoker Gurpreet Hernandez MD [address], [place], [address], [facility] 07/02/2022 11:28:04 What Is Your Level Of Alcohol Consumption? Occasional [email or web address] Information not available 07/02/2022 What Is Your Level Of Caffeine Consumption? Moderate [email or web address] Information not available 07/02/2022 When Did You Quit Smoking? 17+yearssinantoinette pacheco Information not available 07/02/2022 What Was The Date Of Your Most Recent Tobacco Screening? 08/03/2022 [email or web address] Information not available 08/03/2022 Sex: Unknown Functional Status None recorded. Mental Status None recorded. Family History Nothing Reported. Medical History Condition Response Other N High Blood Pressure Y Kidney Stones N Depression N Sexually Transmitted Infection N Cancer N Bleeding Disorder N Lung Disease N GERD/Acid Reflux N High Cholesterol Y Diabetes Y Heart Disease N Past Encounters Encounter ID Performer Location Encounter Start Date Encounter Closed Date Diagnosis/Indication Diagnosis SNOMED-CT Code Diagnosis ICD10 Code [id number] Gurpreet Hernandez MD [facility] [address] [place] [address] 07/02/2022 10:56:57 07/08/2022 16:33:19 Prostate specific antigen above reference range 603516127 R97.20 [id number] Gurpreet Hernandez MD [facility] [address] [place] [address] 08/03/2022 11:13:22 08/07/2022 10:33:43 Prostate specific antigen above reference range 695408278 R97.20 [id number] Gurpreet Hernandez MD [facility] [address] [place] [address] 08/03/2022 11:13:22 08/08/2022 03:52:53 [id number] Gurpreet Hernandez MD [facility] [address] [place] [address] 08/10/2022 16:41:30 08/14/2022 16:55:35 Malignant tumor of prostate [id number] C61 Health Concerns Section Related Observation LastModified by Organization Detai ls LastModified Time None Recorded Concern Status LastModified by Organization Details LastModified Time None Recorded Advance Directives Directive None Recorded Payers Encounter Date Sequence Insurance Name Policy Number Policy Bella Covered Member ID Bella Member ID Guarantor Name 07/02/2022 1 [place] [id number] Gus Santos [id number] Gus Santos 07/02/2022 1 [place] [employer] Gus Santos [id number] Gus Santos 08/03/2022 1 [place] [employer] Gus Santos [id number] Gus Santos 08/03/2022 2 [place] [id number] Gus Santos [id number] Gus Santos 08/03/2022 1 [place] [employer] Gus Santos [id number] Gus Santos 08/03/2022 2 [place] [id number] Gus Santos [id number] Gus Santos 08/10/2022 1 [place] [employer] Gus Santos [id number] Gus Santos 08/10/2022 2 [place] [id number] Gus Santos [id number] Gus Santos Notes Date Note Type Note Provider Name and Address Organization Details Recorded Time 07/02/2022 text/html seeing for PSA elevated at 4.96. unclear if had previous PSA's. voiding OK, no heme/dysuria. UA clear and PVR 28ml today. family hx neg for CaP. Gurpreet Hernandez MD [address] [place] [address],[address] [place] [address], [phone], [facility] 07/02/2022 11:40:41 08/03/2022 text/html here for TRUS-BX today Gurpreet Hernandez MD [address] [place] [address],[address], [address], [facility] 08/03/2022 12:35:08 08/10/2022 text/html here for prostate cancer talk. PSA 4.96 and biopsy showed 3+3 and 3+4 cancer of the prostate. both sides so clinical stage T2c. prostate size was 35g on the U/S. Gurpreet Hernandez MD [address], [place], [address], [facility] 08/10/2022 17:49:06
[2024-07-17 11:54] VITALS: BP 155/81; PULSE 75; RESP 18; TEMP 37.4; O2SAT 96
[2024-07-17 12:25] LABS: Basophils Absolute Auto 0.03 K/uL (0.00-0.30); Basophils Percent Auto 0.3 % (0.0-3.0); Eosinophils Absolute Auto 0.08 K/uL (0.00-0.50); Eosinophils Percent Auto 0.8 % (0.0-7.0); Hematocrit 40.9 % (37.0-53.0); Hemoglobin* 12.9 gm/dL (13.5-17.5); Immature Granulocytes Abs Auto 0.08 K/uL (0.00-0.30); Immature Granulocytes Pct Auto 0.8 %; Lymphocytes Percent Auto 7.7 % (20-44); Mean Corpuscular HGB Conc 32 gm/dL (32-36); Mean Corpuscular Hemoglobin 28 pg (26-34); Mean Corpuscular Volume 88 fL (80-100); Neutrophils Percent Auto 84.4 % (42.0-72.0); Platelet Count* 191 K/uL (140-440); RDW Coefficient of Variation % 13.8 % (11.5-15.5); Red Blood Count 4.67 m/uL (4.30-5.90); White Blood Count* 9.79 K/uL (4.50-11.00)
[2024-07-17 12:29] LABS: Slide Review Reflex No
[2024-07-17 12:51] LABS: Albumin* 3.8 g/dL (3.3-5.0); Chloride* 108 mmol/L (96-114)
[2024-07-17 12:52] LABS: Potassium* 4.1 mmol/L (3.6-5.1); Sodium* 137 mmol/L (135-149)
[2024-07-17 12:54] LABS: Alkaline Phosphatase* 68 U/L (40-150); Anion Gap 4 mEq/L (7-15); Aspartate Amino Transferase* 16 U/L (12-35); Bilirubin Total* 0.3 mg/dL (0.1-1.5); Carbon Dioxide* 25 mmol/L (20-32); Creatinine* 0.8 mg/dL (0.5-1.5); Est. Creatinine Clearance* 60.88; Estimated Glomerular Filt Rate 91 ml/min; Total Protein* 6.5 g/dL (6.0-8.3)
[2024-07-17 12:55] LABS: Alanine Aminotransferase* 15 U/L (4-50); Blood Urea Nitrogen* 29 mg/dL (7-30); Calcium* 9.1 mg/dL (8.4-10.6); Glucose* 158 mg/dL (60-115)
[2024-07-17 13:31] LABS: PSA Diagnostic* < 0.06 ng/mL (0.10-4.00)
[2024-07-17] MEDS: LEUPROLIDE ACETATE 22.5 MG (SQ) SYRINGE SUBCUT (14:03)
[2024-07-19 09:43] LABS: Testosterone, Adult Male <3 ng/dL (300-720)
== END 2024-07-22 23:59 | disposition home or self-care (01) ==
LOC: CCIC 12:00
PROVIDERS: Internal Medicine Hematology & Oncology; PCP Family Medicine; Referring Provider Family Medicine; Visit Provider Physician Assistant
DX: C61 Malignant neoplasm of prostate (principal); E11.59 Type 2 diabetes mellitus with other circulatory complications; I15.2 Hypertension secondary to endocrine disorders; E11.69 Type 2 diabetes mellitus with other specified complication; E78.5 Hyperlipidemia, unspecified
CPT/HCPCS: 36415; 80053; 84153; 84403; 85025; 96401; 96402; 99214; 99215; G0463; J9217

== ENCOUNTER 2025-01-11 12:11 | Outpatient (CLI) | payer MEDICARE, BC, SELFPAY ==
--- OUTSIDE RECORDS SUMMARY | 2016-12-02 02:30 | XMS_ITS | Continuity of Care Document ---
Author Organization [facility] Address [address] [address] [place] [address] Phone Care Team Providers Care Chainstitch Hemmer Name Role Phone Unavailable Unavailable Unavailable Allergies, Adverse Reactions, Alerts Substance Reaction Status Criticality No Known Allergies Active No Inform ation Medications Medication Instructions Dosage Effective Dates (start - stop) Status Comments pravastatin 20 mg tablet take 2 tablet by oral route every day 40 MG - Active metformin 1,000 mg tablet take 1 tablet by oral route 2 times every day with morning and evening meals 1000 MG - Active Procedures Procedure Date Level Iv-surg Path Gross/micro 17 CRS Charges Advance Directives Directive Yes / No Effective Date File Name No Information Encounters Encounter Description Practice Location Reason(s) For Visit Diagnoses Date Provider Providers Copied on Encounter [facility], [address] [address], [place], [place], [id number], tel:[phone] [facility] Benign colon polypEncounter for screening for malignant neoplasm of colonPersonal history of colonic polypsRectal polyp 0-201 7 No Information Referring Provider: Kiran Mcpherson MD [address], [address] [place], [address]. tel:[phone] Family History Family Member Type Diagnosis Age At Onset No Information Payers Payer name Insurance type Covered green party ID Galindo soriano(s) Medicare NGS MB [id number] Social History Type Description Quantity Date Captured Comments Alcohol Use Details Unknown Caffeine Use Details Unknown Tobacco Use Status No Information Smoking Status Former smoker Sex Male Vital Signs Date / Time: Height Weight BMI Pulse Rate Blood Pressure Temperature Respiratory Rate Body Surface Area Head Circumference Head Circ. Percentile Wt./Asim. Percentile BMI percentile Pulse Ox Inhaled Ox 71.00 in 149.660 kg (330.00 lbs) 46.0 0 kg/m eter (2) 67 /min 190/97 mm[Hg] 0.00 F 16 /min 92 % Chief Complaint And Reason For Visit No Information Reason For Referral Reason For Referral No Information History Of Present Illness Encounter Date Complaint History Of Prese nt Illness No Information Functional Status Date Functional Assessmen t No Information Instructions Date Instruction Additional Infor mation No Information Assessments Type Assessment Date No Information Patient Care Teams Name Effective Dates (start - stop) Status Members No Information
[2025-01-11 12:50] LABS: Estimated Glomerular Filt Rate 77 ml/min
--- NOTE | 2025-01-11 13:00 | CRLHL7_ITS ---
For Patients: As a result of the Century Cures Act, medical imaging exams and procedure reports are released immediately into your electronic medical record. You may view this report before your referring provider. If you have questions, please contact your health care provider. INDICATION: Prostate cancer lung nodules TECHNIQUE: CT chest was acquired with 150 cc Isovue 370 IV contrast. Coronal and MIP reconstructions were performed. COMPARISON: CT 04/05/2023 FINDINGS: Lungs and pleura: Right lower lobe granuloma unchanged no suspicious nodules are seen. Heart and vasculature: Heart size is normal. Thoracic aorta and pulmonary artery are normal in caliber. Lymph nodes/mediastinum: No mediastinal, hilar, or axillary adenopathy. Lymph right hilar calcified node. Chest wall: No masses. Upper abdomen: Splenic granulomas. Cholelithiasis Bones: Degenerative changes.. IMPRESSION: Stable exam. No findings for pulmonary metastatic disease Please note that all CT scans at this facility use dose modulation, iterative reconstruction, and/or weight-based dosing when appropriate to reduce radiation dose to as low as reasonably achievable. Dictated by Pippa Neff MD @ 01/15/2025 5:31:24 AM (Electronically Signed)
--- NOTE | 2025-01-11 13:30 | CRLHL7_ITS ---
For Patients: As a result of the Century Cures Act, medical imaging exams and procedure reports are released immediately into your electronic medical record. You may view this report before your referring provider. If you have questions, please contact your health care provider. DXA BONE MINERAL DENSITY STUDY Current height (in): 70. Weight (lb): 320. Menopause age: n/a. Ethnicity: White. 1. Have you had a previous hip or vertebral fracture? No. 2. Have you had any fractures during your adult life which did not result from significant trauma (e.g., auto accident)? No. 3. Did either of your parents have a hip fracture? No. 4. Do you smoke? No. 5. Have you ever taken Glucocorticoids? No. 6. Do you have rheumatoid arthritis? No. 7. Do you have secondary osteoporosis? No. 8. Do you drink 3 or more alcoholic drinks per day? No. 9. Are you being treated for osteoporosis? No. 10. Have you ever taken any of the following medications: Actonel, Evista, Fosamax, Miacalcin, Reclast, Boniva, Forteo, HRT (i.e. estrogen/hormone therapy), Protelos, Prolia, Vitamin D, Calcium, other ??? please specify. ANSWER: Yes, Vitamin D, and Calcium. 11. Do you have any of the following medical conditions: Anorexia or bulimia, asthma or emphysema, end stage renal disease, hyperparathyroidism, any seizure disorders, cancer, inflammatory bowel diseases, hysterectomy, other ??? please specify. ANSWER: Yes, Cancer. 12. What was your maximum height (inches)? 70. 13. Do you perform weight bearing exercise regularly? No. 14. Do you regularly consume dairy products? No. 15. Do you drink caffeinated beverages? Yes. TECHNIQUE: Bone mineral density study was performed using the [employer] FINDINGS: The results of the study expressed as bone mineral density (BMD) are as follows: Lumbar spine L1 to L3: BMD: 1.203 g/cm2. T-score: 1.2. Z-score: 2.3. Neck Left: BMD: 0.725 g/cm2. T-score: -1.5. Z-score: -0.0. Right: BMD: 0.671 g/cm2. T-score: -1.9. Z-score: -0.4. Total Left: BMD: 0.959 g/cm2. T-score: -0.5. Z-score: 0.5. Right: BMD: 0.833 g/cm2. T-score: -1.3. Z-score: -0.3. IMPRESSION: Osteopenia. Comparison exams done prior to 12/2019 were performed on different unit, [email or web address]. COMPARISON: Compared with scan of 10/15/2022, the bone mineral density has had no change at the spine and has decreased by 6.2 percent at the hip. FRAX 10-year Fracture Risk Major Osteoporotic Fracture: 7.6 percent Hip Fracture: 2.7 percent Reported Risk Factors: [place] () Neck BMD=0.671, BMI=39.5. Input outside FRAX limits. Adjusted to Vpgkrd=399 kg. Elfego Warren M.D. Diagnostic Radiologist [email or web address] ANNELIESE/annette DW/Dictated by: Elfego Warren MD @ 01/12/2025 8:38:00 AM (Electronically Signed)
--- OUTSIDE RECORDS SUMMARY | 2025-01-12 00:34 | XMS_ITS | Clinical Summary ---
Author Organization [facility] Address [address] [place] [address] Care Team Providers Care Library Services Coordinator Name Role Phone Unavailable Primary Care Provider Unavailabl e Source Comments Patient records contain information from all sites at [facility]. For routine questions regarding patient records, call [phone] during business hours, M-F 8:00 AM - 5:00 PM Central Time. Record requests for emergency care only can be directed to [phone] at any time.[facility] Allergies Active Allergy Reactions Criticality Noted Date Comments Lisinopril Other (see comments) 10/16/2012 Medications * This document contains information received from the source organization and may not represent a complete record from that organization. furosemide (LASIX) 20 mg tablet Take by mouth as needed. 12/15/2020 Active metFORMIN (GLUCOPHAGE) 1,000 mg tablet Take 1 tablet by mouth 2 (two) times a day with meals. 11/29/2020 Active multivitamin tablet Take 1 tablet by mouth daily as needed. Takes one with Vitamin C for joints. Active pravastatin (PRAVACHOL) 20 mg tablet Take 1 tablet by mouth at bedtime. 02/24/2021 Active empagliflozin (JARDIANCE) 25 mg tablet Take 25 mg by mouth every morning before breakfast. Active losartan (COZAAR) 50 mg tablet Take 1 tablet (50 mg total) by mouth daily. 90 tablet 3 02/28/2021 Active bicalutamide (CASODEX) 50 mg tablet Take 1 tablet (50 mg total) by mouth daily for 21 days. Take at the same time everyday. Take with or without food. 21 tablet 10/09/2022 Active cholecalciferol (VITAMIN D3) 125 mcg (5,000 Unit) tablet Take by mouth daily. Active Eliquis 5 mg tablet Take 5 mg by mouth 2 (two) times a day. 12/30/2022 Active cefTRIAXone (ROCEPHIN) 100 mg/mL injection Infuse 1 g into a venous catheter once. Every 3 months. Active Active Problems Problem Noted Date Diagnosed Date Primary Malignant Neoplasm Of Prostate 3 Cancer Staging:Clinical stage from 08/03/2022:Stage ANGEL(cT3a, cN1, cM0, PSA: 5.6, Grade Group: 2) - Unsigned Family History Medical History Relation Name Comments Liver cancer Paternal Grandmother Relation Name Status Comments Paternal Grandmother Social History Tobacco Use Types Packs/Day Years Used Date Smoking Tobacco: Former Cigarettes 1 13 0 02/27/1966 - 02/27/1979 Cigars Smokeless Tobacco: Never Tobacco Cessation:Counseling Given: Not Answered Alcohol Use Standard Drinks/Week Comments Yes 0 (1 standard drink = 0.6 oz pur e alcohol) Couple per month Nutrition Answer Date Recorded Nutrition: EVOO Fat Source Unknown 02/24 Nutrition: Servings of Fruits/Vegetables per Day Not on file 02/24/2021 Dental Answer Date Recorded Dental: Regular Dentist Unknown 02/25/20 21 Sex and Gender Information Value Date Recorded Sex Assigned at Not on file 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 Gender Identity Not on file Sexual Orientation Not on file Last Filed Vital Signs Vital Sign Reading Time Taken Comments Blood Pressure 155/79 11/26/2023 2:23 PM CDT Pulse 83 11/26/2023 2:23 PM CDT Temperature 36.3 C (97.3 F) 11/26/2023 2:23 PM CDT Respiratory Rate - - Oxygen Saturation - - Inhaled Oxygen Concentration - - Weight 149 kg (328 lb 11.2 oz) 11/26/2023 2:23 P M CDT Height 178.6 cm (5' 10.32) 02/28/2021 9:35 AM C DT Body Mass Index 46.74 02/28/2021 9:35 AM CDT Plan of Treatment Health Maintenance Due Date Last Done Comments Hepatitis C Screening 1945 COVID-19 Vaccine (#1) 1951 Zoster Vaccines (1 of 2) 1965 Pneumococcal vaccine (50+ years) (3 of 3 - PCV) 04/18/2015 04/18/2014, 11/16/2010, 06/30/2009, Additional history exists RSV vaccine - (32-36 weeks) or 60+ years (1 - 1-dose 75+ series) 2021 Influenza Vaccine (#1) 2024 04/18/2014, 2008 Depression Screening (Annual PHQ-2) 07/26/2024 Fall Risk Screen (Annual) 07/26/2024 DTaP,Tdap,and Td Vaccines (3 - Td or Tdap) 04/22/2032 04/22/2022, 06/15/2011, 02/18/2006, Additional history exists Colonoscopy Discontinued 07/30/2008 (Perf ormed elsewhere) Colorectal Cancer Screening Discontinued CT Colonography Discontinued Cologuard Discontinued FIT Discontinued HPV Vaccines Aged Out No longer eligi ble based on patient's age to complete this topic IPV Vaccines Aged Out No longer eligi ble based on patient's age to complete this topic Insurance [facility] MEDICARE
--- OUTSIDE RECORDS SUMMARY | 2025-01-12 00:34 | XMS_ITS | Clinical Summary ---
Author Organization [facility] Address [address] [place] [address] Care Team Providers Care Press Supervisor Name Role Phone None Primary Care Provider Unavailabl e Allergies Active Allergy Reactions Criticality Noted Date Comments Lisinopril *Unknown 10/16/2012 Medications multivitamin (MVI) tablet Take 1 tablet by mouth once daily. Active empagliflozin (JARDIANCE) 25 mg tablet Take 25 mg by mouth once daily. Active indomethacin (INDOCIN) 25 mg capsuleIndications: Gout, unspecified cause, unspecified chronicity, unspecified site Take 1 Capsule (25 mg) by mouth 3 times daily with meals. 30 Capsule 3 1 Active losartan (COZAAR) 50 mg tablet Take 50 mg by mouth once daily. 1 Active furosemide (LASIX) 20 mg tabletIndications:T ype 2 diabetes mellitus without complication, without long-term current use of insulin (HC) Take 1 Tablet (20 mg) by mouth every morning. 90 Tablet 3 1 Active pravastatin (PRAVACHOL) 20 mg tabletIndications:M ixed hyperlipidemia TAKE 1 TABLET (20 MG) BY MOUTH ONCE DAILY WITH EVENING MEAL. 30 Tablet 2 Active metFORMIN (GLUCOPHAGE) 1,000 mg tabletIndications:T ype 2 diabetes mellitus without complication, without long-term current use of insulin (HC) TAKE 1 TABLET BY MOUTH TWICE A DAY WITH MEALS 60 Tablet 2 Active Active Problems Problem Noted Date Diagnosed Date Mixed hyperlipidemia 09/10/2020 Essential hypertension 09/10/2020 Obstructive sleep apnea 09/10/2020 Diarrhea 10/18/2012 ACP (advance care planning) 10/17/2012 Overview (10/17/2012): Patient has identified Health Care Agent(s): No Add Health Care Agents: No Patient has Advance Care Plan Documents (Health Care Directive, POLST): No, referral made to Social Work Services. Patient has identified Specific Treatment Preferences: No Specific limits to treatment preferences NOT identified: ASSUME FULL TREATMENT. Pneumonia, organism unspecified(486) 10/16/2012 Leg wound, right 10/16/2012 Diabetes mellitus type II 10/16/2012 Overview (10/10/2013): a system change updated this record. This will not affect patient care or billing. This comment can be deleted. Sepsis(995.91) 10/16/2012 Cellulitis and abscess of leg 10/16/2012 Immunizations Immunization Administration Dates Next Due Influenza, High-dose Inactivated 04/18/2014 Influenza, High-dose Quadriv alent Inactivated 04/18/2014 Influenza, IIV3 (Age 6-35 mos) 06/30/2009 Pneumococcal Poly,23-Valent (Pneumovax) 04/18/2014,11/16/2010,06/30/2009,2005,11/05/1999 Td (Age >=7 Years) 02/18/2006,11/05/1999 Tdap 06/15/2011 Family History Medical History Relation Name Comments Cancer-breast Father Heart Disease Father Relation Name Status Comments Father Social History Tobacco Use Types Packs/Day Years Used Date Smoking Tobacco: Never Cigarettes Cigars Smokeless Tobacco: Never Tobacco Cessation:Counseling Given: Yes Alcohol Use Standard Drinks/Week Comments Yes 0 (1 standard drink = 0.6 oz pur e alcohol) ocassional Social Connections Answer Date Recorded Frequency of Communication with Friends and Fami ly Not on file 07/19/2021 Financial Resource Strain Answer Date R ecorded Difficulty of Paying Living Expenses Not on file 07/19/2021 Difficulty of Paying Living Expenses Not on file 07/19/2021 Sex and Gender Information Value Date Recorded Sex Assigned at Not on file Legal Sex Male 12:04 PM CDT Gender Identity Not on file Sexual Orientation Not on file Obstetrics History Last Filed Vital Signs Vital Sign Reading Time Taken Comments Blood Pressure 124/84 04/02/2021 8:15 AM CDT Pulse 64 04/02/2021 8:15 AM CDT Temperature 37.5 C (99.5 F) 10/19/2012 9:00 AM CDT Respiratory Rate 20 10/19/2012 9:00 AM CDT Oxygen Saturation 94% 10/19/2012 9:00 AM CDT Inhaled Oxygen Concentration - - Weight 147.9 kg (326 lb) 04/02/2021 8:15 AM CDT Height 180.3 cm (5' 11) 10/16/2012 12:04 PM CDT Body Mass Index 45.47 10/16/2012 12:04 PM CDT Plan of Treatment Health Maintenance Due Date Last Done Comments Depression screening for age 12+ 1958 BMI (ht and wt on same day) for age 18+ 01/15/1964 Hepatitis C screening for age 18-79 01/15/1964 Zoster (shingles) series for age 50+ (1 of 2) 01/15/1996 Medicare Wellness for age 65+ 2011 Pneumococcal series for age 50+ (2 of 2 - PCV) 04/18/2015 04/18/2014, 11/16/2010, 06/30/2009, Additional history exists RSV vaccine for adults or (1 - 1-dose 75+ series) 2021 Tetanus booster 06/15/2021 06/15/2011, 01/24, 11/05/1999 COVID-19 vaccine series ( - 2023- season) 2024 Influenza Vaccine (Season Ended) 2025 04/18/2014, 06/30/2009 Tdap Completed 06/15/2011 Hepatitis B series for 19+ Aged Out N o longer eligible based on patient's age to complete this topic Insurance MEDICARE PART A HB ONLY [facility] MEDICARE [place] ONLY MEDICARE PART B HB ONLY Advance Directives * Full Code (Latest Code Status on File) Date Activated Date Inactivated Comments 10/16/2012 2:28 PM 10/19/2012 3:45 PM Care Teams Press Supervisor Relationship Specialty Start Date End Date None . PCP - General 05/20/22
--- OUTSIDE RECORDS SUMMARY | 2025-01-12 00:34 | XMS_ITS ---
Author Organization [facility] Address [address] [place] [address] Care Team Providers Care Boarding Mother Name Role Phone Unavailable Primary Care Provider Unavailabl e Active Problems * This document contains information received from the source organization and may not represent a complete record from that organization. Problem Noted Date Diagnosed Date Primary Malignant Neoplasm Of Prostate Cancer Staging:Clinical stage from 08/03/2022:Stage ANGEL(cT3a, cN1, cM0, PSA: 5.6, Grade Group: 2) - Unsigned Current Treatment and Therapy Plans No current plan information found. Past Treatment and Therapy Plans Hem/Onc Therapy Plan 1 Plan Name Start Date Discontinue Date Treatment Medications Discontinue Reason Plan Provider LEUPROLIDE ACETATE EVERY 12 WEEKS 10/09/2022 04/13/2023 No medications scheduled. Unlisted Alicia Berg APRN, C.N.P., D.N.P. Past Radiation Episodes * IMRT: ProstateOverview* First Treatment Date Last Treatment Date Treatment Site Technique Goal Episode Provider 10/15/2022 11/19/2022 Prostate IMRT Curative * Linked Problems Primary Malignant Neoplasm O f Prostate Treatment Courses* Course [id number] 10/15/2022 - 11/19/2022 Treatment Period Fraction Dose Fractions Total Dose Plans Planned [id number] 10/15/2022 - 11/19/2022 270 cGy 7 ,020 cGy Reference Points Delivered [id number] 10/15/2022 - 11/19/2022 7,020 cGy
--- OUTSIDE RECORDS SUMMARY | 2025-01-12 00:34 | XMS_ITS | Data Portability ---
Author Organization [facility], [facility] Address [address] [place] [address] Care Team Providers Care Car Detailer Name Role Phone [facility] Referring Provider [phone] Assessment No assessment recorded. Plan of Treatment Reminders Order Date Submit Date Provider Last Modified By Organization Details Last Modified Time Details Appointments None recorded. Lab urinalysis, dipstick 2021 [facility], [address], [address], [place], [address], 15:02:52 Referral None recorded. Procedures bladder scan (PROC) 2021 [facility], [address], [address], [place], [address], 11:59:21 Surgeries None recorded. Imaging None recorded. Medication Orders ceftriaxone 1 gram solution for injection 2022 023 [email or web address] Not available 3 12:11:01 levofloxaci n 500 mg tablet 2021 022 CASSIA Not available 11:39:28 Patient TargetsNo targets recorded. Patient Instructions Encounter Date Encounter Id Patient Instructions Last Modified By Organization Details Last Modified Time 07/02/2022 [id number] firm nodule left side of prostate. set biopsy of prostate [place] [facility] [email or web address] Not available 07/02/2022 11:38:19 08/03/2022 [id number] home with instruction sheet, will call with path report when available. [email or web address] Not available 08/03/2022 12:34:46 08/10/2022 [id number] will think about treatment options after discussion of LEAH of all treatment options. interested most in cryoablation so will work on getting that set up once he gives us the OK. [email or web address] Not available 08/10/2022 17:48:50 Reason for Referral None Reported. Results Created Date Observation Date Name Description Value Unit Range Abnormal Flag Note LastModifiedBy Organization Detail LastModifiedTime 07/02/20 22 07/02/2022 bladd er scan (PROC ) Volume (in mL) 28 Not Available [address] [address], [place], [address], 07/02/2022 11:35:48 07/13/20 22 07/13/2022 urina lysis , dipst ick pH-Status 6.0 Not Available [address] [facility], [place], [address], 07/02/2022 11:22:28 07/02/20 22 07/02/2022 bladd er scan (PROC ) No observ ation record ed. BARCODE Not Available 2021 18:06:36 Result Notes None recorded. Procedures Surgical History Date Name Laterality Status Provider Name and Address Organization Details Recorded Time 3 Prostate Biopsy Procedure completed Gurpreet Hernandez MD [address] [place] [address], [address], [facility] 08/03/2022 12:34:19 2 Bladder Scan completed Gurpreet Hernandez MD [address] [place] [address], [address], [facility] 07/02/2022 11:28:16 Imaging Results None recorded. Procedure Notes None recorded. Medical Equipment None [...] Updated DateTime 08/03/2022 180.34 cm 41.8 kg/m2 224474.71 g Kimo Huff [facility] 08/03/2022 12:09:13 Date Recorded Body height Provider Name an d Address Organization Details Last Updated DateTime 08/10/2022 180.34 cm Gurpreet Hernandez MD [address] [place] [address],[address], [address], [facility] 08/10/2022 17:03:39 Date Recorded Body height Body mass index (BMI) Body weight Provider Name and Address Organization Details Last Updated DateTime 07/02/2022 180.34 cm 41.8 kg/m2 893634.71 g Gurpreet Hernandez MD [address] [place] [address],[address], [address], [facility] 07/02/2022 11:22:22 Social History Question Answer Notes LastModified by Organizat ion Details LastModified Time Tobacco Smoking Status Former Smoker Gurpreet Hernandez MD [address] [place] [address],[address], [address], [facility] 07/02/2022 11:28:04 What Is Your Level Of Caffeine Consumption? Moderate [email or web address] Information not available 07/02/2022 When Did You Quit Smoking? 16+yearssincel rufino [email or web address] Information not available 07/02/2022 What Was The Date Of Your Most Recent Tobacco Screening? 08/03/2022 [email or web address] Information not available 08/03/2022 Sex: Unknown Functional Status Question Answer Note LastModified by Organizat ion Details LastModified Time What is your level of alcohol consumption? Occasional Information not available 07/02/2022 Mental Status None recorded. Family History Nothing Reported. Medical History Condition Response Sexually Transmitted Infection N Diabetes Y Other N Bleeding Disorder N High Blood Pressure Y Kidney Stones N High Cholesterol Y GERD/Acid Reflux N Heart Disease N Cancer N Lung Disease N Depression N Past Encounters Encounter ID Performer Location Encounter Start Date Encounter Closed Date Diagnosis/Indication Diagnosis SNOMED-CT Code Diagnosis ICD10 Code Diagnosis Note [id number] [facility] [address] [place] [address] 07/02/2022 10:56:57 07/08/2022 16:33:19 Prostate specific antigen above reference range 617971593 R97.20 [id number] [facility] [place] [address] 08/03/2022 11:13:22 08/07/2022 10:33:43 Prostate specific antigen above reference range 963812355 R97.20 [id number] MD ISHAAN CurielLynda [facility] [place] [address] 08/03/2022 11:13:22 08/08/2022 03:52:53 [id number] MD ISHAAN CurielLynda [employer] [facility] [place] [address] 08/10/2022 16:41:30 08/14/2022 16:55:35 Malignant neoplasm of prostate 532280604 C61 Health Concerns Section Related Observation LastModified by Organization Detai ls LastModified Time None Recorded Concern Status LastModified by Organization Details LastModified Time None Recorded Advance Directives Directive None Recorded Payers Insurance Date Sequence Insurance Name Policy Number Policy Bella Covered Member ID Bella Member ID Guarantor Name 08/09/2022 2 [place] [id number] Gus Santos [id number] Gus Santos 07/31/2022 1 [place] [employer] Gus Santos [id number] Gus Santos 07/02/2022 1 [place] [id number] Gus Santos [id number] Gus Santos Notes Date Note Type Note Provider Name and Address Organization Details Recorded Time 07/02/2022 text/html seeing for PSA elevated at 4.96. unclear if had previous PSA's. voiding OK, no heme/dysuria. UA clear and PVR 28ml today. family hx neg for CaP. Gurpreet Hernandez MD [address] [place] [address],[address], [address], [facility] 07/02/2022 11:40:41 08/03/2022 text/html here for TRUS-BX today Gurpreet Hernandez MD [address] [place] [address],[address], [place], [address], [facility] 08/03/2022 12:35:08 08/10/2022 text/html here for prostate cancer talk. PSA 4.96 and biopsy showed 3+3 and 3+4 cancer of the prostate. both sides so clinical stage T2c. prostate size was 35g on the [place]. Gurpreet Hernandez MD [address] [place] [address],[address], [place], [address], [facility] 08/10/2022 17:49:06
--- OUTSIDE RECORDS SUMMARY | 2025-01-12 00:34 | XMS_ITS | Data Portability ---
Author Organization [facility], [facility] Address [address] [place] [address] Care Team Providers Care Tube Laser Operator Name Role Phone [facility] Referring Provider [phone] Assessment No assessment recorded. Plan of Treatment Reminders Order Date Submit Date Provider Last Modified By Organization Details Last Modified Time Details Appointments None recorded. Lab urinalysis, dipstick 2021 [facility], [address], [address], [place], [address], 15:02:52 Referral None recorded. Procedures bladder scan (PROC) 2021 [facility], [address], [address], [place], [address], 11:59:21 Surgeries None recorded. Imaging None recorded. Medication Orders ceftriaxone 1 gram solution for injection 2022 023 bbeckers Not available 3 12:11:01 levofloxaci n 500 mg tablet 2021 022 CASSIA Not available 11:39:28 Patient TargetsNo targets recorded. Patient Instructions Encounter Date Encounter Id Patient Instructions Last Modified By Organization Details Last Modified Time 07/02/2022 [id number] firm nodule left side of prostate. set biopsy of prostate [place] [facility] [email or web address] Not available 07/02/2022 11:38:19 08/03/2022 [id number] home with instruction sheet, will call with path report when available. [email or web address] Not available 08/03/2022 12:34:46 08/10/2022 [id number] will think about treatment options after discussion of LEAH of all treatment options. interested most in cryoablation so will work on getting that set up once he gives us the OK. [email or web address] Not available 08/10/2022 17:48:50 Reason for Referral None Reported. Results Created Date Observation Date Name Description Value Unit Range Abnormal Flag Note LastModifiedBy Organization Detail LastModifiedTime 07/02/20 22 07/02/2022 bladd er scan (PROC ) Volume (in mL) 28 Not Available [address] [address], [place], [address], 07/02/2022 11:35:48 07/13/20 22 07/13/2022 urina lysis , dipst ick pH-Status 6.0 Not Available [address], [place], [address], 07/02/2022 11:22:28 07/02/20 22 07/02/2022 bladd er scan (PROC ) No observ ation record ed. BARCODE Not Available 2021 18:06:36 Result Notes None recorded. Procedures Surgical History Date Name Laterality Status Provider Name and Address Organization Details Recorded Time 3 Prostate Biopsy Procedure completed Gurpreet Hernandez MD [address] [place] [address], [address], [facility] 08/03/2022 12:34:19 2 Bladder Scan completed Gurpreet Hernandez MD [address] [place] [address], [address], [facility] 07/02/2022 11:28:16 Imaging Results None [...] Updated DateTime 08/03/2022 180.34 cm 41.8 kg/m2 047629.71 g Kimo Huff [facility] 08/03/2022 12:09:13 Date Recorded Body height Provider Name an d Address Organization Details Last Updated DateTime 08/10/2022 180.34 cm Gurpreet Hernandez MD [address] [place] [address],[address], [address], [facility] 08/10/2022 17:03:39 Date Recorded Body height Body mass index (BMI) Body weight Provider Name and Address Organization Details Last Updated DateTime 07/02/2022 180.34 cm 41.8 kg/m2 414363.71 g Gurpreet Hernandez MD [address] [place] [address],[address], [address], [facility] 07/02/2022 11:22:22 Social History Question Answer Notes LastModified by Organizat ion Details LastModified Time Tobacco Smoking Status Former Smoker Gurpreet Hernandez MD [address] [place] [address],[address], [address], [facility] 07/02/2022 11:28:04 What Is Your Level Of Caffeine Consumption? Moderate [email or web address] Information not available 07/02/2022 When Did You Quit Smoking? 16+yearssincel rufino [email or web address] Information not available 07/02/2022 What Was The Date Of Your Most Recent Tobacco Screening? 08/03/2022 [email or web address] Information not available 08/03/2022 Sex: Unknown Functional Status Question Answer Note LastModified by Organizat ion Details LastModified Time What is your level of alcohol consumption? Occasional [email or web address] Information not available 07/02/2022 Mental Status None [...] SNOMED-CT Code Diagnosis ICD10 Code Diagnosis Note [id number] [facility] Hernandez [facility] [address] [place] [address] 07/02/2022 10:56:57 07/08/2022 16:33:19 Prostate specific antigen above reference range [id number] R97.20 [id number] [facility] [employer] [facility] [place] [address] 08/03/2022 11:13:22 08/07/2022 10:33:43 Prostate specific antigen above reference range 903421366 R97.20 [id number] MD ISHAAN CurielLynda [employer] [facility] [place] [address] 08/03/2022 11:13:22 08/08/2022 03:52:53 [id number] MD ISHAAN CurielLynda [employer] [facility] [place] [address] 08/10/2022 16:41:30 08/14/2022 16:55:35 Malignant neoplasm of prostate [id number] C61 Health Concerns Section Related Observation LastModified by Organization Detai ls LastModified Time None Recorded Concern Status LastModified by Organization Details LastModified Time None Recorded Advance Directives Directive None Recorded Payers Insurance Date Sequence Insurance Name Policy Number Policy Bella Covered Member ID Bella Member ID Guarantor Name 08/09/2022 2 [place] [id number] Gus Santos [id number] Gus Santos 07/31/2022 1 [place] [employer] Gus Santos [id number] Gus Santos 07/02/2022 1 [place] [id number] Gus Santos [id number] Gus Santos Notes Date Note Type Note Provider Name and Address Organization Details Recorded Time 07/02/2022 text/html seeing for PSA elevated at 4.96. unclear if had previous PSA's. voiding OK, no heme/dysuria. UA clear and PVR 28ml today. family hx neg for CaP. Gurpreet Hernandez MD [address] [place] [address],[address], [address], [facility] 07/02/2022 11:40:41 08/03/2022 text/html here for TRUS-BX today Gurpreet Hernandez MD [address] [place] [address],[address], [place], [address], [facility] 08/03/2022 12:35:08 08/10/2022 text/html here for prostate cancer talk. PSA 4.96 and biopsy showed 3+3 and 3+4 cancer of the prostate. both sides so clinical stage T2c. prostate size was 35g on the [place]. Gurpreet Hernandez MD [address] [place] [address],[address], [place], [address], [facility] 08/10/2022 17:49:06
== END 2025-01-11 12:12 | disposition home or self-care (01) ==
LOC: CT 12:11
PROVIDERS: PCP Family Medicine; Visit Provider Internal Medicine Hematology & Oncology
DX: C61 Malignant neoplasm of prostate (principal); R91.8 Other nonspecific abnormal finding of lung field; M85.89 Other specified disorders of bone density and structure, multiple sites; Z79.818 Long term (current) use of other agents affecting estrogen receptors and estrogen levels
CPT/HCPCS: 36415; 71260; 77080; 82565; Q9967

== ENCOUNTER 2025-04-09 14:00 | Outpatient (RCR) | payer MEDICARE, BC, SELFPAY ==
[2024-10-18 12:26] LABS: Hematocrit 42.6 % (37.0-53.0); Hemoglobin* 13.6 gm/dL (13.5-17.5); Immature Granulocytes Abs Auto 0.07 K/uL (0.00-0.30); Immature Granulocytes Pct Auto 0.7 %; Lymphocytes Absolute Auto 1.00 K/uL (0.90-2.90); Mean Corpuscular HGB Conc 32 gm/dL (32-36); Mean Corpuscular Hemoglobin 28 pg (26-34); Mean Corpuscular Volume 87 fL (80-100); RDW Coefficient of Variation % 13.8 % (11.5-15.5); Red Blood Count 4.91 m/uL (4.30-5.90); White Blood Count* 9.42 K/uL (4.50-11.00)
[2024-10-18 12:27] LABS: Slide Review Reflex No
[2024-10-18 12:36] LABS: Albumin* 4.5 g/dL (3.3-5.0); Chloride* 99 mmol/L (96-114)
[2024-10-18 12:37] LABS: Potassium* 5.0 mmol/L (3.6-5.1); Sodium* 137 mmol/L (135-149)
[2024-10-18 12:39] LABS: Alanine Aminotransferase* 21 U/L (4-50); Anion Gap 8 mEq/L (7-15); Aspartate Amino Transferase* 26 U/L (12-35); Blood Urea Nitrogen* 23 mg/dL (7-30); Carbon Dioxide* 30 mmol/L (20-32); Creatinine* 1.0 mg/dL (0.5-1.5); Estimated Glomerular Filt Rate 77 ml/min
[2024-10-18 12:40] LABS: Alkaline Phosphatase* 94 U/L (40-150); Bilirubin Total* 0.7 mg/dL (0.1-1.5); Calcium* 10.0 mg/dL (8.4-10.6); Glucose* 121 mg/dL (60-115); Total Protein* 7.4 g/dL (6.0-8.3)
[2024-10-18 14:06] LABS: PSA Diagnostic* < 0.06 ng/mL (0.10-4.00)
[2024-10-18] MEDS: LEUPROLIDE ACETATE (ELIGARD) 22.5 MG INJ SUBCUT (14:08)
[2025-01-12 14:54] LABS: Hematocrit 40.2 % (37.0-53.0); Hemoglobin* 12.9 gm/dL (13.5-17.5); Immature Granulocytes Abs Auto 0.15 K/uL (0.00-0.30); Immature Granulocytes Pct Auto 1.7 %; Lymphocytes Absolute Auto 1.00 K/uL (0.90-2.90); Mean Corpuscular HGB Conc 32 gm/dL (32-36); Mean Corpuscular Hemoglobin 27 pg (26-34); Mean Corpuscular Volume 85 fL (80-100); RDW Coefficient of Variation % 14.6 % (11.5-15.5); Red Blood Count 4.76 m/uL (4.30-5.90); White Blood Count* 8.88 K/uL (4.50-11.00)
[2025-01-12 15:01] LABS: Slide Review Reflex No
[2025-01-12 15:49] LABS: PSA Diagnostic* < 0.06 ng/mL (0.10-4.00)
[2025-01-12 16:14] LABS: Albumin* 4.2 g/dL (3.3-5.0); Chloride* 107 mmol/L (96-114); Potassium* 4.7 mmol/L (3.6-5.1); Sodium* 141 mmol/L (135-149)
[2025-01-12 16:16] LABS: Blood Urea Nitrogen* 25 mg/dL (7-30); Creatinine* 1.0 mg/dL (0.5-1.5); Estimated Glomerular Filt Rate 77 ml/min
[2025-01-12 16:17] LABS: Alanine Aminotransferase* 21 U/L (4-50); Alkaline Phosphatase* 68 U/L (40-150); Anion Gap 13 mEq/L (7-15); Aspartate Amino Transferase* 25 U/L (12-35); Bilirubin Total* 0.4 mg/dL (0.1-1.5); Calcium* 10.0 mg/dL (8.4-10.6); Carbon Dioxide* 21 mmol/L (20-32); Glucose* 166 mg/dL (60-115); Total Protein* 7.1 g/dL (6.0-8.3)
[2025-01-17 13:44] VITALS: BP 121/74; PULSE 78; RESP 17; TEMP 37; O2SAT 95
[2025-01-17] MEDS: LEUPROLIDE ACETATE (ELIGARD) 22.5 MG INJ SUBCUT (14:07)
[2025-04-06 13:51] LABS: Hematocrit 39.2 % (37.0-53.0); Hemoglobin* 12.5 gm/dL (13.5-17.5); Immature Granulocytes Abs Auto 0.08 K/uL (0.00-0.30); Immature Granulocytes Pct Auto 0.8 %; Mean Corpuscular HGB Conc 32 gm/dL (32-36); Mean Corpuscular Hemoglobin 27 pg (26-34); Mean Corpuscular Volume 85 fL (80-100); RDW Coefficient of Variation % 15.1 % (11.5-15.5); Red Blood Count 4.62 m/uL (4.30-5.90); White Blood Count* 10.57 K/uL (4.50-11.00)
[2025-04-06 14:03] LABS: Albumin* 4.0 g/dL (3.3-5.0); Chloride* 104 mmol/L (96-114); Potassium* 5.1 mmol/L (3.6-5.1); Sodium* 137 mmol/L (135-149)
[2025-04-06 14:06] LABS: Alanine Aminotransferase* 17 U/L (4-50); Alkaline Phosphatase* 63 U/L (40-150); Anion Gap 6 mEq/L (7-15); Aspartate Amino Transferase* 21 U/L (12-35); Bilirubin Total* 0.3 mg/dL (0.1-1.5); Blood Urea Nitrogen* 23 mg/dL (7-30); Carbon Dioxide* 27 mmol/L (20-32); Creatinine* 1.0 mg/dL (0.5-1.5); Est. Creatinine Clearance* 59.90; Estimated Glomerular Filt Rate 77 ml/min; Total Protein* 6.8 g/dL (6.0-8.3)
[2025-04-06 14:07] LABS: Calcium* 9.3 mg/dL (8.4-10.6); Glucose* 109 mg/dL (60-115)
[2025-04-06 14:09] LABS: Lymphocytes Absolute Auto 1.10 K/uL (0.90-2.90); Slide Review Reflex No
[2025-04-06 14:49] LABS: PSA Diagnostic* < 0.06 ng/mL (0.10-4.00)
[2025-04-09] MEDS: LEUPROLIDE ACETATE (ELIGARD) 22.5 MG INJ SUBCUT (14:15)
== END 2025-04-16 23:59 | disposition home or self-care (01) ==
LOC: CCIC 14:00
PROVIDERS: Physician Assistant; PCP Family Medicine; Referring Provider Family Medicine; Visit Provider Internal Medicine Hematology & Oncology
DX: C61 Malignant neoplasm of prostate (principal); E66.9 Obesity, unspecified; R91.1 Solitary pulmonary nodule; M85.80 Other specified disorders of bone density and structure, unspecified site; Z79.818 Long term (current) use of other agents affecting estrogen receptors and estrogen levels; Z86.711 Personal history of pulmonary embolism; Z79.01 Long term (current) use of anticoagulants; Z87.891 Personal history of nicotine dependence; E11.69 Type 2 diabetes mellitus with other specified complication; E78.5 Hyperlipidemia, unspecified; E11.59 Type 2 diabetes mellitus with other circulatory complications; I15.2 Hypertension secondary to endocrine disorders
CPT/HCPCS: 36415; 80053; 84153; 85025; 96402; 99214; 99215; G0463; J9217